=== PATIENT | female | born 1990 | race African-American/Black ===

== ENCOUNTER 2019-01-19 10:17 | Emergency (ER) | payer MEDICAID ==
[~2019-01-19] VITALS: Ht 175.3 cm; Wt 66.8 kg
[~2019-01-19 10:17] MED LIST: HYDR-1348 PO
[2019-01-19] MEDS ORDERED: MAGNESIUM/ALUMINUM HYDROXIDE/SIMETHICONE 30ML UDC PO STA (11:22)
[2019-01-19] MEDS ORDERED: VISCOUS LIDOCAINE 2% 15 ML UDC PO STA (11:22)
[2019-01-19] MEDS ORDERED: DICYCLOMINE HCL 10MG/ML 2ML AMP IM ONE (11:30)
[2019-01-19] MEDS ORDERED: ONDANSETRON HCL 4MG/2ML INJ IV ONE (11:30)
[2019-01-19] MEDS ORDERED: FAMOTIDINE 20MG/2ML VIAL IV ONE (11:30)
[2019-01-19] MEDS ORDERED: SODIUM CHLORIDE 0.9% 1,000 ML IV ONE (11:30)
[2019-01-19 12:56] VITALS: BP 129/72
== END 2019-01-19 12:59 | disposition home or self-care (01) ==
LOC: ER 10:23
DX: R10.13 Epigastric pain (principal); R11.2 Nausea with vomiting, unspecified; F12.90 Cannabis use, unspecified, uncomplicated; Z72.89 Other problems related to lifestyle; Z79.899 Other long term (current) drug therapy; Z90.89 Acquired absence of other organs
CPT/HCPCS: 81025; 96361; 96372; 96374; 96375; 99283; J0500; J2405; J3490; J7030

== ENCOUNTER 2021-09-02 14:46 | Emergency (ER) | payer MEDICAID ==
[~2021-09-02] VITALS: Ht 177.8 cm; Wt 68.0 kg
[2021-09-02] MEDS ORDERED: SODIUM CHLORIDE 0.9% 1,000 ML IV ONE (15:30)
[2021-09-02 15:49] LABS: HEMATOCRIT. 41.2 % (36.0-48.0); HEMOGLOBIN. 13.7 g/dL (12.0-16.0); MEAN CORPUSCULAR HEMOGLOBIN 27.3 pg (28.0-32.0); MEAN CORPUSCULAR VOLUME 82.1 fL (81.0-99.0); PLATELET 242 x1000/uL (130-400); RED BLOOD CELL COUNT 5.01 mill/uL (4.2-5.4); RED CELL DISTRIBUTION WIDTH 13.4 % (11.6-14.6)
[2021-09-02 15:55] LABS: CHLORIDE 109 mEq/L (98-107)
[2021-09-02 15:59] LABS: ETHANOL BLOOD < 10 mg/dL
[2021-09-02 16:02] LABS: HCG SCREEN NEGATIVE
[2021-09-02 16:11] LABS: PLATELET ESTIMATE NORMAL
[2021-09-02] MEDS ORDERED: ONDANSETRON HCL 4MG/2ML INJ IV ONE (16:15)
[2021-09-02 16:58] LABS: CLARITY URINE CLEAR (CLEAR); COLOR URINE YELLOW (YELLOW); KETONES URINE NEGATIVE (NEGATIVE); LEUKOCYTE ESTERASE URINE NEGATIVE (NEGATIVE); NITRITE URINE NEGATIVE (NEGATIVE); OCCULT BLOOD URINE NEGATIVE (NEGATIVE); PH URINE 5.5 (4.5-8.0); PROTEIN URINE NEGATIVE (NEGATIVE); SPECIFIC GRAVITY URINE 1.008 (1.005-1.030); UROBILINOGEN URINE 0.2 E.U./dL (0.2-1.0)
[2021-09-02 17:16] LABS: METHADONE URINE SCREEN NEGATIVE (NEGATIVE)
[2021-09-02 17:17] LABS: *AMPHETAMINES SCREEN URINE NEGATIVE (NEGATIVE); *BARBITURATES SCREEN URINE NEGATIVE (NEGATIVE); *BENZODIAZEPINES SCREEN URINE NEGATIVE (NEGATIVE); OPIATES URINE SCREEN NEGATIVE (NEGATIVE); PHENCYCLIDINE URINE SCREEN NEGATIVE (NEGATIVE)
[2021-09-02 17:24] LABS: *COCAINE SCREEN URINE PRESUMTIVE POSITIVE (NEGATIVE); CANNABINOID URINE SCREEN PRESUMTIVE POSITIVE (NEGATIVE)
[2021-09-02 19:49] VITALS: BP 111/68
== END 2021-09-02 19:50 | disposition home or self-care (01) ==
LOC: ER 14:46
DX: F19.10 Other psychoactive substance abuse, uncomplicated (principal); F12.10 Cannabis abuse, uncomplicated; F14.10 Cocaine abuse, uncomplicated; Z98.890 Other specified postprocedural states
CPT/HCPCS: 36415; 80053; 80305; 80307; 80320; 80329; 81003; 83690; 83880; 84484; 84703; 85025; 93005; 96360; 96361; 99285; J7030; G0480

== ENCOUNTER 2022-09-01 00:20 | Emergency (ER) | payer MEDICAID ==
[~2022-09-01] VITALS: Ht 175.3 cm; Wt 70.0 kg
[2022-09-01] MEDS ORDERED: SODIUM CHLORIDE 0.9% 1,000 ML IV ONE ×2 (01:15→03:15)
[2022-09-01 02:30] VITALS: BP 119/68
[2022-09-01 02:30] LABS: BASOPHILS % 0.5 % (0.0-2.0); EOSINOPHILS % 1.1 % (0.0-5.0); HEMOGLOBIN. 12.1 g/dL (12.0-16.0); LYMPHOCYTES % 33.9 % (20.0-50.0); MEAN CORPUSCULAR HEMOGLOBIN 27.6 pg (28.0-32.0); MEAN CORPUSCULAR VOLUME 81.7 fL (81.0-99.0); MEAN PLATELET VOLUME 9.2 fl (7.4-10.4); MONOCYTES % 12.3 % (2.0-8.0); NEUTROPHILS % 52.2 % (40.0-76.0); PLATELET 174 x1000/uL (130-400); RED CELL DISTRIBUTION WIDTH 13.3 % (11.6-14.6)
[2022-09-01 02:33] LABS: CHLORIDE 110 mEq/L (98-107)
[2022-09-01 02:41] LABS: PROTHROMBIN TIME 10.9 sec (9.6-11.0)
[2022-09-01 03:57] LABS: ETHANOL BLOOD < 10 mg/dL; HCG SCREEN NEGATIVE
== END 2022-09-01 05:29 | disposition home or self-care (01) ==
LOC: ER 00:20
DX: N93.8 Other specified abnormal uterine and vaginal bleeding (principal); F14.10 Cocaine abuse, uncomplicated; F12.10 Cannabis abuse, uncomplicated
CPT/HCPCS: 36415; 80053; 80320; 81025; 84443; 84703; 85025; 85610; 93005; 96360; 96361; 99284; J7030; Z7610; G0480